=== PATIENT | female | born 1995 | race Two or more races ===

== ENCOUNTER 2017-03-17 21:48 | Emergency (ER) | payer MEDICAID ==
[~2017-03-17] VITALS: Ht 162.6 cm; Wt 68.0 kg
[2017-03-17 23:52] LABS: Urine Bilirubin Negative (Negative); Urine Color Yellow (Yellow); Urine Glucose Normal (Normal); Urine Ketone Negative (Negative); Urine Nitrite Negative (Negative); Urine RBC 1 /hpf (0 - 4); Urine Squamous Epithelial Cell FEW /hpf (<5); Urine Urobilinogen Normal (Negative); Urine pH 5.5 (5.0-8.0)
[2017-03-17 23:56] LABS: Urine Blood 3+ /uL (Negative)
[2017-03-17 23:56] LABS: Basophils # (auto) 0 uL; Basophils % (auto) 0.3 % (0.0-2.0); Eosinophils # (auto) 0.1 uL; Eosinophils % (auto) 1.1 % (0.0-7.0); Hematocrit 40.5 % (36.0-46.0); Hemoglobin 13.4 g/dL (12.2-16.2); Lymphocytes # (auto) 2.3 uL; Lymphocytes % (auto) 25.7 % (10.0-50.0); Mean Corpuscular Volume 87.9 fL (80.0-100.0); Mean Platelet Volume 9.3 fL (7.4-10.4); Monocytes # (auto) 0.5 uL; Neutrophils # (auto) 6.2 uL; Neutrophils % (auto) 66.9 % (37.0-80.0); Platelet Count (auto) 293 10^3/uL (140-450); Red Cell Distribution Width 11.8 % (11.6-16.0); White Blood Cell 9.1 10^3/uL (4.4-10.8)
[2017-03-18 00:01] LABS: Albumin 3.7 g/dL (3.4-5.0); Calcium 8.5 mg/dL (8.5-10.1); Potassium 3.9 mmol/L (3.5-5.1)
[2017-03-18 00:06] LABS: Bilirubin, Total 0.2 mg/dL (0.2-1.0); Total Protein 7.7 g/dL (6.4-8.2)
[2017-03-18 01:00] VITALS: BP 109/82
== END 2017-03-18 01:30 | disposition home or self-care (01) ==
LOC: ER 22:08
DX: O20.0 Threatened abortion (principal); O23.41 Unspecified infection of urinary tract in pregnancy, first trimester; Z3A.01 Less than 8 weeks gestation of pregnancy
CPT/HCPCS: 36415; 80053; 81001; 81025; 84702; 85025

== ENCOUNTER 2017-03-20 05:10 | Emergency (ER) | payer MEDICAID ==
[~2017-03-20] VITALS: Ht 162.6 cm; Wt 68.0 kg
[2017-03-20 07:55] LABS: Urine Bilirubin Negative (Negative); Urine Blood TRACE /uL (Negative); Urine Color Yellow (Yellow); Urine Glucose Normal (Normal); Urine Ketone Negative (Negative); Urine Nitrite Negative (Negative); Urine RBC 2 /hpf (0 - 4); Urine Squamous Epithelial Cell FEW /hpf (<5); Urine Urobilinogen Normal (Negative)
[2017-03-20 08:09] LABS: Basophils # (auto) 0 uL; Basophils % (auto) 0.5 % (0.0-2.0); Eosinophils # (auto) 0.1 uL; Eosinophils % (auto) 1.4 % (0.0-7.0); Hematocrit 42.8 % (36.0-46.0); Hemoglobin 14.3 g/dL (12.2-16.2); Lymphocytes # (auto) 2.2 uL; Lymphocytes % (auto) 29.7 % (10.0-50.0); Mean Corpuscular Hemoglobin 29.8 pg (28.0-32.0); Mean Corpuscular Hgb Conc. 33.4 g/dL (32.0-36.0); Mean Corpuscular Volume 89.3 fL (80.0-100.0); Monocytes # (auto) 0.4 uL; Monocytes % (auto) 4.9 % (0.0-12.0); Neutrophils # (auto) 4.7 uL; Neutrophils % (auto) 63.5 % (37.0-80.0); Platelet Count (auto) 306 10^3/uL (140-450); Red Cell Distribution Width 12.9 % (11.6-16.0); White Blood Cell 7.4 10^3/uL (4.4-10.8)
[2017-03-20 08:30] LABS: Albumin 3.7 g/dL (3.4-5.0); Calcium 8.4 mg/dL (8.5-10.1); Potassium 4.2 mmol/L (3.5-5.1)
[2017-03-20 08:37] LABS: BUN/Creatinine Ratio 19.1; Bilirubin, Total 0.2 mg/dL (0.2-1.0); Total Protein 7.9 g/dL (6.4-8.2)
[2017-03-20 10:56] VITALS: BP 123/74
== END 2017-03-20 11:25 | disposition home or self-care (01) ==
LOC: ER 05:13
DX: O23.41 Unspecified infection of urinary tract in pregnancy, first trimester (principal); Z3A.00 Weeks of gestation of pregnancy not specified; O26.891 Other specified pregnancy related conditions, first trimester; R10.9 Unspecified abdominal pain
CPT/HCPCS: 36415; 76801; 76817; 80053; 81001; 84702; 85025

== ENCOUNTER 2019-06-02 21:50 | Emergency (ER) | payer MEDICAID ==
[~2019-06-02] VITALS: Ht 162.6 cm; Wt 77.1 kg
[2019-06-02 22:11] VITALS: BP 129/82
[2019-06-03 00:06] LABS: Urine Bacteria MANY /hpf (None Seen); Urine Blood 2+ /uL (Negative); Urine Mucus FEW (None Seen); Urine Specific Gravity 1.004 (1.001-1.035); Urine WBC 10 /hpf (0 - 5)
[2019-06-03 00:34] LABS: Basophils # (auto) 0.1 uL; Basophils % (auto) 0.5 % (0.0-2.0); Eosinophils # (auto) 0.1 uL; Eosinophils % (auto) 1.2 % (0.0-7.0); Hematocrit 37.6 % (36.0-46.0); Hemoglobin 12.8 g/dL (12.2-16.2); Lymphocytes # (auto) 2.7 uL; Lymphocytes % (auto) 26.3 % (10.0-50.0); Mean Corpuscular Hemoglobin 30.4 pg (28.0-32.0); Mean Corpuscular Volume 89.3 fL (80.0-100.0); Monocytes # (auto) 0.6 uL; Monocytes % (auto) 5.5 % (0.0-12.0); Neutrophils # (auto) 6.8 uL; Neutrophils % (auto) 66.5 % (37.0-80.0); Platelet Count (auto) 249 10^3/uL (140-450); Red Blood Cells 4.21 10^6/uL (4.0-5.20); Red Cell Distribution Width 12.9 % (11.8-14.3); White Blood Cell 10.2 10^3/uL (4.4-10.8)
[2019-06-03 00:56] LABS: Albumin 4.3 g/dL (3.4-5.0); Calcium 9.2 mg/dL (8.5-10.1); Potassium 3.8 mmol/L (3.5-5.1)
[2019-06-03 01:02] LABS: Bilirubin, Total 0.2 mg/dL (0.2-1.0); Total Protein 7.9 g/dL (6.4-8.2)
== END 2019-06-03 02:57 | disposition left against medical advice (07) ==
LOC: ER 21:50
DX: O20.8 Other hemorrhage in early pregnancy (principal); Z53.21 Procedure and treatment not carried out due to patient leaving prior to being seen by health care provider
CPT/HCPCS: 36415; 80053; 81001; 84702; 85025

== ENCOUNTER 2020-11-23 00:34 | Inpatient (IN) | payer MEDICAID ==
[~2020-11-23] VITALS: Ht 160 cm; Wt 84.8 kg
[2020-11-23] MEDS ORDERED: PHISODERM TOP SOLN 240ML BTL TOP PRN (01:30)
[2020-11-23] MEDS ORDERED: CARBOPROST TROMETHAMINE 250 MCG/1ML VIAL IM ONE (01:30)
[2020-11-23] MEDS ORDERED: LIDOCAINE 2%HCL (LOCAL ANESTH.) INJ 20ML MDV IJ ONE (01:30)
[2020-11-23] MEDS ORDERED: BUTORPHANOL TARTRATE 2 MG/1 ML VIAL IV PRN (01:30)
[2020-11-23] MEDS ORDERED: METHYLERGONOVINE MALEATE 0.2 MG/ML AMP IM ONE (01:30)
[2020-11-23] MEDS ORDERED: WITCH HAZEL-GLYCERIN PAD TOP PRN (01:30)
[2020-11-23] MEDS ORDERED: LACT. RINGERS/OXYTOCIN 20UNITS 1,000 ML IV ONE (01:30)
[2020-11-23] MEDS ORDERED: PROMETHAZINE HCL 25 MG/ML 1ML IV PRN (01:30)
[2020-11-23] MEDS ORDERED: DERMOPLAST 60ML BOTTLE TOP PRN (01:30)
[2020-11-23 02:13] LABS: Urine Bacteria FEW /hpf (None Seen); Urine Blood Negative /uL (Negative); Urine Specific Gravity 1.009 (1.001-1.035); Urine WBC 11 /hpf (0 - 5)
[2020-11-23 02:21] LABS: Alcohol, Urine < 3.0 mg/dL (0-10); Amphetamine Screen, Urine NEGATIVE (NEGATIVE); Barbiturate Scree,Urine NEGATIVE (NEGATIVE); Benzodiazephine Screen, Urine NEGATIVE (NEGATIVE); Cannabinoid Screen, Urine NEGATIVE (NEGATIVE); Cocaine Screen, Urine NEGATIVE (NEGATIVE); Opiate Scree,Urine NEGATIVE (NEGATIVE); Phencyclidine Screen, Urine NEGATIVE (NEGATIVE)
[2020-11-23] MEDS ORDERED: LACT. RINGERS/OXYTOCIN 20UNITS 1,000 ML IV SCH (02:30)
[2020-11-23 02:56] LABS: Basophils # (auto) 0 10 ^3/uL (0-0.2); Basophils % (auto) 0.1 % (0.0-2.0); Eosinophils # (auto) 0.1 10 ^3/uL (0-0.8); Eosinophils % (auto) 0.7 % (0.0-7.0); Hematocrit 34.7 % (36.0-46.0); Hemoglobin 11.7 g/dL (12.2-16.2); Lymphocytes % (auto) 17.8 % (10.0-50.0); Mean Corpuscular Hemoglobin 30.6 pg (28.0-32.0); Mean Corpuscular Hgb Conc. 33.8 g/dL (32.0-36.0); Mean Corpuscular Volume 90.5 fL (80.0-100.0); Monocytes # (auto) 0.6 10 ^3/uL (0-1.3); Monocytes % (auto) 5.8 % (0.0-12.0); Neutrophils # (auto) 8.4 10 ^3/uL (1.6-8.6); Neutrophils % (auto) 75.6 % (37.0-80.0); Nucleated Red Blood Cells % 0.1 %; Platelet Count (auto) 214 10^3/uL (140-450); Red Blood Cells 3.84 10^6/uL (4.0-5.20); Red Cell Distribution Width 14.1 % (11.8-14.3); White Blood Cell 11.1 10^3/uL (4.4-10.8)
[2020-11-23] MEDS: LACTATED RINGER'S 1,000 ML IV SCH ×2 (02:57→05:17)
[2020-11-23 03:06] LABS: Albumin 2.4 g/dL (3.4-5.0); BUN/Creatinine Ratio 18.2; Calcium 8.9 mg/dL (8.5-10.1); Potassium 3.4 mmol/L (3.5-5.1)
[2020-11-23 03:09] LABS: Bilirubin, Total 0.3 mg/dL (0.2-1.0); Total Protein 6.4 g/dL (6.4-8.2)
[2020-11-23 03:27] LABS: INR 0.92 (0.9-1.15); Partial Thromboplastin Time 25.8 sec (23.0-31.2)
[2020-11-23] MEDS ORDERED: NALOXONE HCL 0.4 MG/ML VIAL IV ONE (04:30)
[2020-11-23] MEDS ORDERED: LIDOCAINE HCL 2 %PF INJ 10ML AMP IJ ONE ×2 (04:30→04:35)
[2020-11-23] MEDS ORDERED: ROPIVACAINE HCL 200 ML EPI SCH (04:30)
[2020-11-23] MEDS ORDERED: ePHEDrine SULFATE 50 MG/ML AMP IV ONE (04:30)
[2020-11-23] MEDS ORDERED: ePHEDrine SULFATE 50 MG/ML AMP ONE (04:35)
[2020-11-23] MEDS ORDERED: ROPIVACAINE HCL 400mg/200ml BAG (2mg/ml) ONE (04:36)
[2020-11-23 11:00] VITALS: BP 107/57
[2020-11-23 15:00] VITALS: BP 110/65
[2020-11-23] MEDS: IBUPROFEN 600 MG TAB PO PRN ×2 (16:11→22:51)
[2020-11-23 19:00] VITALS: BP 107/65
[2020-11-23 23:00] VITALS: BP 107/63
[2020-11-24 03:00] VITALS: BP 109/59
[2020-11-24] MEDS: IBUPROFEN 600 MG TAB PO PRN (03:26)
[2020-11-24 06:34] VITALS: BP 105/63
[2020-11-24] MEDS ORDERED: PREN-96 PO (07:20)
[2020-11-24] MEDS ORDERED: IBUP400T22 PO (07:21)
[2020-11-25 10:06] LABS: RPR Non Reactive (Non Reactive)
== END 2020-11-24 09:42 | disposition home or self-care (01) | DRG 560 ==
LOC: OBSVTOIN 00:34 → LDRP 00:34
PROVIDERS: ADMIT Obstetrics & Gynecology; ATTEND Obstetrics & Gynecology
PROC: 10E0XZZ Delivery of Products of Conception, External Approach (ICD-10-PCS; principal; 2020-11-23)
PROC: 3E0R3BZ Introduction of Anesthetic Agent into Spinal Canal, Percutaneous Approach (ICD-10-PCS; 2020-11-23)
PROC: 00HU33Z Insertion of Infusion Device into Spinal Canal, Percutaneous Approach (ICD-10-PCS; 2020-11-23)
DX: O69.81X0 Labor and delivery complicated by cord around neck, without compression, not applicable or unspecified (principal); Z37.0 Single live birth; Z3A.39 39 weeks gestation of pregnancy; Z20.822 Contact with and (suspected) exposure to COVID-19
CPT/HCPCS: 36415; 59025; 59409; 62282; 76805; 80053; 80307; 81001; 81002; 85025; 85610; 85730; 86592; 86850; 86900; 86901; 87426; 96360; 96361; 96374; G0378; J2590

== ENCOUNTER 2022-08-31 19:23 | Inpatient (IN) | payer MEDICAID ==
[~2022-08-31] VITALS: Ht 160 cm; Wt 79.4 kg
[~2022-08-31 19:23] MED LIST: IBUP400T22 PO; PREN-96 PO
[2022-08-31] MEDS ORDERED: PROMETHAZINE HCL 25 MG/ML 1ML IM PRN (19:45)
[2022-08-31] MEDS ORDERED: LIDOCAINE 2%HCL (LOCAL ANESTH.) INJ 10ml MDV IJ PRN (19:45)
[2022-08-31] MEDS ORDERED: miSOPROStol 50 MCG per PRE-CUT 1/2 TAB PO PRN (19:45)
[2022-08-31] MEDS ORDERED: BUTORPHANOL TARTRATE 2 MG/1 ML VIAL IV PRN ×2 (19:45)
[2022-08-31] MEDS ORDERED: PHISODERM TOP SOLN 240ML BTL TOP PRN (19:45)
[2022-08-31] MEDS ORDERED: LACT. RINGERS/OXYTOCIN 20UNITS 500 ML IV ONE ×2 (19:45→20:15)
[2022-08-31] MEDS ORDERED: PENICILLIN G POT 5MIL/D5 50ML 50 ML IV ONE (19:45)
[2022-08-31] MEDS ORDERED: LACT. RINGERS/OXYTOCIN 20UNITS 1,000 ML IV SCH (21:00)
[2022-08-31 21:10] LABS: Alcohol, Urine < 3.0 mg/dL (0-10); Amphetamine Screen, Urine NEGATIVE (NEGATIVE); Barbiturate Scree,Urine NEGATIVE (NEGATIVE); Benzodiazephine Screen, Urine NEGATIVE (NEGATIVE); Cannabinoid Screen, Urine NEGATIVE (NEGATIVE); Cocaine Screen, Urine NEGATIVE (NEGATIVE); Opiate Scree,Urine NEGATIVE (NEGATIVE); Phencyclidine Screen, Urine NEGATIVE (NEGATIVE)
[2022-08-31 21:14] LABS: Albumin 2.4 g/dL (3.4-5.0); BUN/Creatinine Ratio 21.7; Bilirubin, Total 0.2 mg/dL (0.2-1.0); Calcium 8.8 mg/dL (8.5-10.1); Potassium 3.8 mmol/L (3.5-5.1); Total Protein 6.8 g/dL (6.4-8.2)
[2022-08-31 21:22] LABS: Basophils # (auto) 0 10 ^3/uL (0-0.2); Basophils % (auto) 0.3 % (0.0-2.0); Eosinophils # (auto) 0.1 10 ^3/uL (0-0.8); Eosinophils % (auto) 0.6 % (0.0-7.0); Hematocrit 34.6 % (36.0-46.0); Hemoglobin 11.6 g/dL (12.2-16.2); Lymphocytes % (auto) 20.6 % (10.0-50.0); Mean Corpuscular Hemoglobin 29.2 pg (28.0-32.0); Mean Corpuscular Hgb Conc. 33.4 g/dL (32.0-36.0); Mean Corpuscular Volume 87.5 fL (80.0-100.0); Monocytes # (auto) 0.7 10 ^3/uL (0-1.3); Monocytes % (auto) 7.1 % (0.0-12.0); Neutrophils % (auto) 71.4 % (37.0-80.0); Nucleated Red Blood Cells % 0.1 %; Red Blood Cells 3.95 10^6/uL (4.0-5.20); Red Cell Distribution Width 14.1 % (11.8-14.3); White Blood Cell 9.8 10^3/uL (4.4-10.8)
[2022-08-31 21:33] LABS: Urine Amorphous Crystal FEW /hpf (None Seen); Urine Bacteria NONE SEEN /hpf (None Seen); Urine Blood Negative /uL (Negative); Urine Specific Gravity 1.022 (1.001-1.035); Urine WBC 2 /hpf (0 - 5)
[2022-08-31 21:55] LABS: INR 0.89 (0.9-1.15); Partial Thromboplastin Time 28.5 sec (24.6-33.4)
[2022-08-31] MEDS: LACTATED RINGER'S 1,000 ML IV SCH (22:45)
[2022-08-31] MEDS ORDERED: LIDOCAINE HCL 2 %PF INJ 10ML AMP IJ ONE (23:15)
[2022-08-31] MEDS ORDERED: NALOXONE HCL 0.4 MG/ML VIAL IV ONE (23:15)
[2022-08-31] MEDS ORDERED: LACTATED RINGER'S 1,000 ML IV ONE (23:15)
[2022-08-31] MEDS ORDERED: ePHEDrine SULFATE 50 MG/ML AMP IV ONE (23:15)
[2022-08-31] MEDS ORDERED: ROPIVACAINE HCL 200 ML EPI SCH (23:15)
[2022-08-31] MEDS ORDERED: fentaNYL CITRATE 100 MCG/2 ML VL IV ONE (23:15)
[2022-09-01] MEDS ORDERED: ROPIVACAINE HCL 200 ML EPI SCH (01:15)
[2022-09-01] MEDS: PENICILLIN G POTASSIUM 2,500,000 UNITS in D5W 5% 50 ML IV SCH ×3 (01:49→09:34)
[2022-09-01] MEDS: LACTATED RINGER'S 1,000 ML IV SCH (04:41)
[2022-09-01] MEDS ORDERED: LIDOCAINE 2%HCL (LOCAL ANESTH.) INJ 20ML MDV ONE (07:40)
[2022-09-01] MEDS: WITCH HAZEL-GLYCERIN PAD TOP PRN (07:41)
[2022-09-01] MEDS: DERMOPLAST 60ML BOTTLE TOP PRN (07:41)
[2022-09-01] MEDS ORDERED: PENICILLIN G POT 5MIL/D5 50ML 0 ML IV ONE (09:19)
[2022-09-01] MEDS ORDERED: METHYLERGONOVINE MALEATE 0.2 MG/ML AMP IM ONE (10:19)
[2022-09-01 12:45] VITALS: BP 128/78
[2022-09-01] MEDS ORDERED: ONDANSETRON ODT 4 MG TAB PO PRN (12:45)
[2022-09-01] MEDS: IBUPROFEN 600 MG TAB PO PRN ×2 (13:14→21:18)
[2022-09-01 14:57] VITALS: BP 130/77
[2022-09-01 18:51] VITALS: BP 118/68
[2022-09-01 23:30] VITALS: BP 117/76
[2022-09-02] MEDS: ACETAMINOPHEN 325 MG TAB PO PRN ×2 (00:30→07:51)
[2022-09-02 03:00] VITALS: BP 121/74
[2022-09-02] MEDS: IBUPROFEN 600 MG TAB PO PRN ×2 (05:35→12:30)
[2022-09-02 07:00] VITALS: BP 104/64
[2022-09-02 08:06] LABS: RPR Non Reactive (Non Reactive)
[2022-09-02 11:00] VITALS: BP 106/59
[2022-09-02] MEDS: DERMOPLAST 60ML BOTTLE TOP PRN (13:00)
[2022-09-02] MEDS: WITCH HAZEL-GLYCERIN PAD TOP PRN (13:00)
== END 2022-09-02 13:09 | disposition home or self-care (01) | DRG 560 ==
LOC: LDRP 19:23
PROVIDERS: ADMIT Obstetrics & Gynecology; ATTEND Obstetrics & Gynecology
PROC: 10E0XZZ Delivery of Products of Conception, External Approach (ICD-10-PCS; principal; 2022-09-01)
PROC: 3E0R3BZ Introduction of Anesthetic Agent into Spinal Canal, Percutaneous Approach (ICD-10-PCS; 2022-09-01)
PROC: 00HU33Z Insertion of Infusion Device into Spinal Canal, Percutaneous Approach (ICD-10-PCS; 2022-09-01)
PROC: 10907ZC Drainage of Amniotic Fluid, Therapeutic from Products of Conception, Via Natural or Artificial Opening (ICD-10-PCS; 2022-09-01)
DX: O48.0 Post-term pregnancy (principal); Z37.0 Single live birth; N63.0 Unspecified lump in unspecified breast; O69.81X0 Labor and delivery complicated by cord around neck, without compression, not applicable or unspecified; Z20.822 Contact with and (suspected) exposure to COVID-19; Z3A.40 40 weeks gestation of pregnancy
CPT/HCPCS: 36415; 59025; 59409; 62282; 80053; 80307; 81001; 81002; 85025; 85610; 85730; 86592; 86850; 86900; 86901; 87426; 94760; 94762; 96360; 96361; 96365; 96366; G0378; J2540; J2590; J7060

== ENCOUNTER → 2022-11-05 | Day surgery (SDC) | payer MEDICAID ==
[2022-11-03 10:25] LABS: Urine Bacteria NONE SEEN /hpf (None Seen); Urine Blood Negative /uL (Negative); Urine Mucus FEW (None Seen); Urine Specific Gravity 1.029 (1.001-1.035); Urine WBC 3 /hpf (0 - 5)
[2022-11-03 10:35] LABS: INR 0.97 (0.9-1.15)
[2022-11-03 10:42] LABS: Albumin 4.2 g/dL (3.4-5.0); Calcium 8.7 mg/dL (8.5-10.1)
[2022-11-03 10:46] LABS: BUN/Creatinine Ratio 30.3; Bilirubin, Total 0.3 mg/dL (0.2-1.0)
[2022-11-03 10:50] LABS: Basophils # (auto) 0 10 ^3/uL (0-0.2); Basophils % (auto) 0.5 % (0.0-2.0); Eosinophils # (auto) 0 10 ^3/uL (0-0.8); Eosinophils % (auto) 0.5 % (0.0-7.0); Hematocrit 40.8 % (36.0-46.0); Hemoglobin 13.7 g/dL (12.2-16.2); Lymphocytes # (auto) 2.4 10 ^3/uL (0.4-5.4); Lymphocytes % (auto) 30.7 % (10.0-50.0); Mean Corpuscular Hemoglobin 28.5 pg (28.0-32.0); Mean Corpuscular Hgb Conc. 33.6 g/dL (32.0-36.0); Mean Corpuscular Volume 84.9 fL (80.0-100.0); Monocytes # (auto) 0.4 10 ^3/uL (0-1.3); Neutrophils % (auto) 63.3 % (37.0-80.0); Red Blood Cells 4.81 10^6/uL (4.0-5.20); White Blood Cell 7.9 10^3/uL (4.4-10.8)
[~2022-11-05] VITALS: Ht 160 cm; Wt 70.3 kg
[~2022-11-05] MED LIST changes: +BUPIVACAINE 0.25% INJ 50ML VIAL ONE; +DexAMETHasone SOD PHOS 10MG/1ML VIAL INJ ONE; +HYDR-4902 PO; -IBUP400T22 PO; +IBUP800T27 PO; +LABETALOL HCL 5 MG/ML 4ML SYRINGE IV PRN; +LACTATED RINGER'S 1,000 ML IV SCH; +LIDOCAINE 2% JELLY 11ml (GLYDO) ONE; +MEPERIDINE HCL (50 MG/ML) 1 ML VIAL ONE; +MIDAZOLAM HCL 2MG/2ML 2ml VIAL (1mg/ml) IV PRN; +MIDAZOLAM HCL 2MG/2ML 2ml VIAL (1mg/ml) ONE; +ONDA-144 PO; +ONDANSETRON HCL 4 MG/2 ML VIAL IV PRN; +PROPOFOL 10 MG/ML 20 ML IV ONE; +ceFAZolin 1GM/50ML 100 ML IV ONE; +ePHEDrine SULFATE 50 MG/ML AMP IV PRN; +fentaNYL CITRATE 100 MCG/2 ML VL ONE
[2022-11-05] MEDS: HYDROmorphone HCL 2 MG/ML VL/or syr IV PRN ×3 (08:35→09:10)
[2022-11-05 09:30] VITALS: BP 122/76
== END | disposition home or self-care (01) ==
LOC: SUR 06:11
PROVIDERS: ATTEND Obstetrics & Gynecology
DX: Z30.2 Encounter for sterilization (principal); Z90.49 Acquired absence of other specified parts of digestive tract; Z79.891 Long term (current) use of opiate analgesic; Z79.1 Long term (current) use of non-steroidal anti-inflammatories (NSAID); Z98.890 Other specified postprocedural states; Z20.822 Contact with and (suspected) exposure to COVID-19
CPT/HCPCS: 36415; 58671; 80053; 81001; 81025; 84702; 85025; 85610; 85730; 86850; 86900; 86901; J0690; J1100; J1170; J2175; J2250; J2405; J2704; J3010; J3490; U0003